=== PATIENT | female | born 1980 | race Caucasian/White ===

== ENCOUNTER 2017-07-14 23:46 | Emergency (ER) | payer BC, OTHER ==
[2017-07-15 00:05] VITALS: TEMP 99.2; O2SAT 97
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
[2017-07-15 01:09] VITALS: BP 129/85
== END 2017-07-15 01:08 | disposition home or self-care (01) ==
LOC: ER 23:46
DX: R10.30 Lower abdominal pain, unspecified (principal); R11.0 Nausea; R42 Dizziness and giddiness; V49.49XA Driver injured in collision with other motor vehicles in traffic accident, initial encounter; Y92.410 Unspecified street and highway as the place of occurrence of the external cause